=== PATIENT | female | born 1935 | race Caucasian/White ===

== ENCOUNTER 2018-10-27 13:16 | Inpatient (IN) | payer OTHER ==
[~2018-10-27] VITALS: Ht 154.9 cm; Wt 64.4 kg
[2018-10-27 13:50] VITALS: BP_SYST 140
[2018-10-27] MEDS ORDERED: SENN-104 PO (14:09)
[2018-10-27] MEDS ORDERED: LOSA50TA3 PO (14:10)
[2018-10-27] MEDS ORDERED: AMLO5TAB4 PO (14:11)
[2018-10-27] MEDS ORDERED: KETOROLAC TROMETHAMINE 15 MG VIAL IVP ONE (14:15)
[2018-10-27] MEDS ORDERED: LIDOCAINE PATCH 5% 1 EA TP ONE (14:30)
[2018-10-27 14:36] LABS: HEMATOCRIT 43.9 % (36-48); HEMOGLOBIN 14.6 g/dL (12.0-16.0); MEAN CORPUSCULAR HEMOGLOBIN 30 pg (27-31); MEAN CORPUSCULAR HGB CONC 33 % (32-36); MEAN CORPUSCULAR VOLUME 90 fL (79.0-98.0); RED BLOOD CELL COUNT(AUTO) 4.85 MIL/uL (4.2-6.2); RED CELL DISTRIBUTION WIDTH 14.5 % (9.0-15.0); WHITE BLOOD COUNT (AUTO) 9.2 K/uL (4.8-10.8)
[2018-10-27 14:37] LABS: BASOPHILS % (AUTO) 0.3 % (0.0-2.0); EOSINOPHILS % (AUTO) 0.2 % (0.0-4.0); LYMPHOCYTES # (AUTO) 1.4 K/uL (1.0-5.5); LYMPHOCYTES % (AUTO) 15.4 % (20.5-51.5); MONOCYTES # (AUTO) 0.7 K/uL (0.0-1.0); MONOCYTES % (AUTO) 7.5 % (1.7-9.3); NEUTROPHILS % (AUTO) 76.6 % (40.0-70.0); PLATELET COUNT (AUTO) 263 K/uL (130-430)
[2018-10-27 14:39] LABS: ALANINE AMINOTRANSFERASE 26 U/L (12-78); ALBUMIN 3.2 g/dL (3.4-4.8); ANION GAP 8 (5-15); ASPARTATE AMINOTRANSFERASE 18 U/L (10-37); CALCIUM 10.4 mg/dL (8.4-11.0); CHLORIDE 100 mmol/L (98-107); GLUCOSE 92 mg/dL (70-99); POTASSIUM 3.5 mmol/L (3.5-5.1); SODIUM SERUM 127 mmol/L (136-145); TOTAL BILIRUBIN 0.9 mg/dL (0.0-1.0); UREA NITROGEN, BLOOD 15 mg/dL (8-21)
[2018-10-27 14:47] LABS: BILIRUBIN,URINE NEGATIVE (NEGATIVE); CLARITY/URINE SL HAZY (CLEAR); COLOR,URINE YELLOW (YELLOW); GLUCOSE,URINE NEGATIVE (NEGATIVE); KETONES,URINE TRACE (NEGATIVE); LEUKOCYTE ESTERASE ,URINE TRACE (NEGATIVE); NITRITE, URINE NEGATIVE (NEGATIVE); PH,URINE 6.5 (5.0-8.0); PROTEIN URINE TRACE (NEGATIVE)
[2018-10-27 14:49] LABS: BLOOD, URINE TRACE (NEGATIVE)
[2018-10-27 14:58] LABS: RBC,URINE 0-3 /HPF (0-3)
[2018-10-27 14:59] LABS: BACTERIA,URINE FEW /HPF (None Seen); MUCUS,URINE 1+ /LPF (None Seen)
[2018-10-27 16:16] VITALS: BP_SYST 123
[2018-10-27] MEDS: traMADol HCL HCL 50 MG TABLET (ULTRAM) PO SCH (18:00)
[2018-10-27] MEDS: KETOROLAC TROMETHAMINE 15 MG VIAL IVP SCH (18:00)
[2018-10-27] MEDS ORDERED: COMBIGAN OP (18:11)
[2018-10-27] MEDS ORDERED: ATOR10TA68 PO (18:11)
[2018-10-27] MEDS ORDERED: TRAV2.5D OP (18:12)
[2018-10-27] MEDS: LOSARTAN POTASSIUM 50 MG TABLET (COZAAR) PO SCH (21:00)
[2018-10-27 21:20] VITALS: BP_SYST 140
[2018-10-27] MEDS: amLODIPine BESYLATE 5 MG TABLET PO SCH (21:30)
[2018-10-27] MEDS: SENNOSIDES/DOCUSATE SODIUM 1 TAB TABLET(SENOKOT-S) PO SCH (21:30)
[2018-10-27 23:49] VITALS: BP_SYST 136
[2018-10-28] MEDS: KETOROLAC TROMETHAMINE 15 MG VIAL IVP SCH ×5 (06:00→23:48)
[2018-10-28] MEDS: traMADol HCL HCL 50 MG TABLET (ULTRAM) PO SCH ×5 (06:00→23:47)
[2018-10-28 08:00] VITALS: BP_SYST 143
[2018-10-28] MEDS: SENNOSIDES/DOCUSATE SODIUM 1 TAB TABLET(SENOKOT-S) PO SCH ×2 (08:31→20:33)
[2018-10-28] MEDS: LOSARTAN POTASSIUM 50 MG TABLET (COZAAR) PO SCH ×2 (08:31→20:35)
[2018-10-28] MEDS: amLODIPine BESYLATE 5 MG TABLET PO SCH ×2 (08:32→20:34)
[2018-10-28] MEDS: LIDOCAINE PATCH 5% 1 EA TP SCH (08:33)
[2018-10-28 12:27] VITALS: BP_SYST 127
[2018-10-28 16:23] VITALS: BP_SYST 124
[2018-10-28] MEDS ORDERED: TRAVOPROST 0.004% 2.5 ML EYE DROPS OP SCH (20:15)
[2018-10-28] MEDS: DOCUSATE SODIUM 250 MG CAPSULE PO SCH (20:34)
[2018-10-28] MEDS: ATORVASTATIN 10 MG TABLET PO SCH (20:34)
[2018-10-28] MEDS: BRIMONIDINE TAR. 0.2%/TIMOLOL 0.5% EYE DROPS 5 ML OP SCH (20:35)
[2018-10-28 23:53] VITALS: BP_SYST 134
[2018-10-29] MEDS: KETOROLAC TROMETHAMINE 15 MG VIAL IVP SCH ×3 (05:37→17:51)
[2018-10-29] MEDS: traMADol HCL HCL 50 MG TABLET (ULTRAM) PO SCH ×3 (05:37→17:52)
[2018-10-29 08:00] VITALS: BP_SYST 146
[2018-10-29] MEDS ORDERED: TRAVOPROST 0.004% 2.5 ML EYE DROPS OP SCH (08:36)
[2018-10-29] MEDS: LOSARTAN POTASSIUM 50 MG TABLET (COZAAR) PO SCH ×2 (08:45→21:08)
[2018-10-29] MEDS: amLODIPine BESYLATE 5 MG TABLET PO SCH ×2 (08:45→21:09)
[2018-10-29] MEDS: LIDOCAINE PATCH 5% 1 EA TP SCH (08:46)
[2018-10-29] MEDS: SENNOSIDES/DOCUSATE SODIUM 1 TAB TABLET(SENOKOT-S) PO SCH ×2 (09:00→21:06)
[2018-10-29] MEDS: DOCUSATE SODIUM 250 MG CAPSULE PO SCH ×2 (09:00→21:00)
[2018-10-29] MEDS: BRIMONIDINE TAR. 0.2%/TIMOLOL 0.5% EYE DROPS 5 ML OP SCH (09:00)
[2018-10-29 13:09] VITALS: BP_SYST 117
[2018-10-29] MEDS ORDERED: MILK OF MAGNESIA 30 ML UDC PO PRN (16:15)
[2018-10-29 16:55] VITALS: BP_SYST 114
[2018-10-29] MEDS: KCL 20 mEq in D5NS 1000 mL 1,000 ML IV SCH (17:50)
[2018-10-29] MEDS: COMBIGAN OP SCH (21:05)
[2018-10-29] MEDS: XALATAN 0.005% OP SCH (21:06)
[2018-10-29] MEDS: ATORVASTATIN 10 MG TABLET PO SCH (21:08)
[2018-10-29 21:09] VITALS: BP_SYST 139
[2018-10-30 00:15] VITALS: BP_SYST 133
[2018-10-30] MEDS: KETOROLAC TROMETHAMINE 15 MG VIAL IVP SCH ×5 (00:16→23:40)
[2018-10-30] MEDS: traMADol HCL HCL 50 MG TABLET (ULTRAM) PO SCH ×5 (00:17→23:38)
[2018-10-30] MEDS: KCL 20 mEq in D5NS 1000 mL 1,000 ML IV SCH ×2 (05:18→17:29)
[2018-10-30 07:11] LABS: BASOPHILS % (AUTO) 0.5 % (0.0-2.0); EOSINOPHILS % (AUTO) 1.5 % (0.0-4.0); HEMATOCRIT 38.5 % (36-48); HEMOGLOBIN 12.8 g/dL (12.0-16.0); LYMPHOCYTES # (AUTO) 1.7 K/uL (1.0-5.5); LYMPHOCYTES % (AUTO) 28.7 % (20.5-51.5); MEAN CORPUSCULAR HEMOGLOBIN 30 pg (27-31); MEAN CORPUSCULAR HGB CONC 33 % (32-36); MEAN CORPUSCULAR VOLUME 91 fL (79.0-98.0); MONOCYTES # (AUTO) 0.6 K/uL (0.0-1.0); MONOCYTES % (AUTO) 9.6 % (1.7-9.3); NEUTROPHILS # (AUTO) 3.6 K/uL (1.8-7.7); NEUTROPHILS % (AUTO) 59.7 % (40.0-70.0); PLATELET COUNT (AUTO) 228 K/uL (130-430); RED BLOOD CELL COUNT(AUTO) 4.24 MIL/uL (4.2-6.2); RED CELL DISTRIBUTION WIDTH 14.5 % (9.0-15.0); WHITE BLOOD COUNT (AUTO) 6.1 K/uL (4.8-10.8)
[2018-10-30 07:12] LABS: EOSINOPHILS # (AUTO) 0.1 K/uL (0.0-0.4)
[2018-10-30 07:13] LABS: ANION GAP 9 (5-15); CALCIUM 9.4 mg/dL (8.4-11.0); CHLORIDE 109 mmol/L (98-107); CREATININE 0.53 mg/dL (0.55-1.30); GLUCOSE 97 mg/dL (70-99); SODIUM SERUM 139 mmol/L (136-145); UREA NITROGEN, BLOOD 17 mg/dL (8-21)
[2018-10-30] MEDS: DOCUSATE SODIUM 250 MG CAPSULE PO SCH ×2 (09:00→20:38)
[2018-10-30] MEDS: SENNOSIDES/DOCUSATE SODIUM 1 TAB TABLET(SENOKOT-S) PO SCH ×2 (09:00→20:39)
[2018-10-30 09:07] VITALS: BP_SYST 130
[2018-10-30] MEDS: LIDOCAINE PATCH 5% 1 EA TP SCH (09:12)
[2018-10-30] MEDS: LOSARTAN POTASSIUM 50 MG TABLET (COZAAR) PO SCH ×2 (09:13→20:37)
[2018-10-30] MEDS: amLODIPine BESYLATE 5 MG TABLET PO SCH ×2 (09:13→20:38)
[2018-10-30] MEDS: COMBIGAN OP SCH ×2 (09:21→20:37)
[2018-10-30 12:26] VITALS: BP_SYST 117
[2018-10-30 16:33] VITALS: BP_SYST 151
[2018-10-30 20:30] VITALS: BP_SYST 134
[2018-10-30] MEDS: XALATAN 0.005% OP SCH (20:36)
[2018-10-30] MEDS: ATORVASTATIN 10 MG TABLET PO SCH (20:37)
[2018-10-31 00:57] VITALS: BP_SYST 113
[2018-10-31] MEDS: traMADol HCL HCL 50 MG TABLET (ULTRAM) PO SCH ×2 (06:40→12:34)
[2018-10-31] MEDS: KETOROLAC TROMETHAMINE 15 MG VIAL IVP SCH ×2 (06:43→12:34)
[2018-10-31] MEDS: KCL 20 mEq in D5NS 1000 mL 1,000 ML IV SCH (06:43)
[2018-10-31 08:10] VITALS: BP_SYST 148
[2018-10-31] MEDS: DOCUSATE SODIUM 250 MG CAPSULE PO SCH (08:45)
[2018-10-31] MEDS: COMBIGAN OP SCH (08:45)
[2018-10-31] MEDS: amLODIPine BESYLATE 5 MG TABLET PO SCH (08:46)
[2018-10-31] MEDS: LOSARTAN POTASSIUM 50 MG TABLET (COZAAR) PO SCH (08:46)
[2018-10-31] MEDS: LIDOCAINE PATCH 5% 1 EA TP SCH (08:47)
[2018-10-31] MEDS: SENNOSIDES/DOCUSATE SODIUM 1 TAB TABLET(SENOKOT-S) PO SCH (08:48)
[2018-10-31 12:45] VITALS: BP_SYST 116
[2018-10-31 16:16] VITALS: BP_SYST 144
[2018-10-31 16:42] VITALS: BP_SYST 144
== END 2018-10-31 18:50 | disposition home health service (06) | DRG 543 ==
LOC: SMU 13:39
PROVIDERS: ADMIT Family Medicine; ATTEND Family Medicine
DX: M48.56XA Collapsed vertebra, not elsewhere classified, lumbar region, initial encounter for fracture (principal); E87.1 Hypo-osmolality and hyponatremia; M81.0 Age-related osteoporosis without current pathological fracture; E03.9 Hypothyroidism, unspecified; I10 Essential (primary) hypertension; N31.9 Neuromuscular dysfunction of bladder, unspecified; M43.17 Spondylolisthesis, lumbosacral region; Z96.659 Presence of unspecified artificial knee joint; M19.90 Unspecified osteoarthritis, unspecified site; Z86.73 Personal history of transient ischemic attack (TIA), and cerebral infarction without residual deficits; Z88.8 Allergy status to other drugs, medicaments and biological substances
CPT/HCPCS: 36415; 80048; 80053; 81000-TC; 85025; 87086; 97116-GP; 97530-GP; J1885